=== PATIENT | female | born 1985 | race Caucasian/White ===

== ENCOUNTER 2018-04-23 22:02 | Emergency (ER) | END 2018-04-24 01:06 | disposition home or self-care (01) ==

== ENCOUNTER 2019-01-24 18:11 | Emergency (ER) | payer BC, OTHER ==
[~2019-01-24] VITALS: Ht 170.2 cm; Wt 112.9 kg
[~2019-01-24 18:11] MED LIST: DOCU-144 PO; FER325 PO; HYDR-4011 PO; IBUP-1542 PO; NAPR-985 PO
[2019-01-24 18:55] VITALS: BP 129/74; PULSE 77; RESP 18; Ht 170.2 cm; Wt 112.9 kg
== END 2019-01-24 21:51 | disposition home or self-care (01) ==
LOC: FTE 18:11
DX: R10.2 Pelvic and perineal pain (principal)
CPT/HCPCS: 76830; 76856; 81001; 81003; 81025; 87086